=== PATIENT | female | born 1950 | race Caucasian/White ===

== ENCOUNTER 2017-09-14 10:51 | Outpatient (CLI) | payer MEDICARE ==
--- NOTE | 2017-09-14 13:02 | RAD ---
PA AND LATERAL VIEWS OF CHEST: Date: 09/14/17 HISTORY: Cough. FINDINGS: The heart size is normal. The aorta is tortuous. The lungs are well expanded without focal areas of c onsolidation, pneumothorax, or pleural effusions. 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 The re are degenerative changes in the spine. Scoliosis of the spine is also present. IMPRESSION: No radiographic evidence of acute cardiopulmonary process. POS: [facility]
== END 2017-09-14 10:52 | disposition home or self-care (01) ==
LOC: RAD-FRANK 10:51
PROVIDERS: ATTEND Nurse Practitioner Family
DX: R05 Cough (principal); J06.9 Acute upper respiratory infection, unspecified; J40 Bronchitis, not specified as acute or chronic; F17.210 Nicotine dependence, cigarettes, uncomplicated
CPT/HCPCS: 71046

== ENCOUNTER 2021-12-24 18:35 | Inpatient (IN) | payer MEDICARE ==
[2021-12-24 20:31] VITALS: BMI 30.6
[2021-12-24] MEDS ORDERED: Morphine 2 MG/ML VIAL SLOW IVP PRN (20:34)
[2021-12-24] MEDS: Morphine 4 MG/ML VIAL SLOW IVP PRN (20:54)
[2021-12-24] MEDS: Ondansetron PF 4 MG/2 ML Vial IVP PRN (20:58)
[2021-12-25] MEDS: Morphine 4 MG/ML VIAL SLOW IVP PRN ×2 (01:16→05:22)
[2021-12-25] MEDS ORDERED: Temazepam 15 MG CAP PO PRN (04:44)
[2021-12-25] MEDS ORDERED: Diazepam 2 MG TAB PO PRN (04:44)
[2021-12-25] MEDS: Levothyroxine Sodium 100 MCG TAB PO SCH (05:23)
[2021-12-25] MEDS: Ondansetron PF 4 MG/2 ML Vial IVP PRN (05:30)
[2021-12-25] MEDS: Carbidopa/Levodopa [Rytary Er] 48.75 MG/195 MG Capsule.Er PO SCH ×4 (05:34→20:46)
[2021-12-25 07:04] LABS: #Eosinphils 0.1 thou/uL (0.0-0.7); #Lymphocytes 1.2 thou/uL (1.20-3.40); #Monocytes 1.6 thou/uL (0.11-0.59); #Neutrophils 9.9 thou/uL (1.40-6.50); %Basophils 0.2 % (0.0-1.0); %Eosinophils 0.6 % (0.0-10.0); %Lymphocytes 9.4 % (21.0-51.0); %Monocytes 12.4 % (0.0-10.0); %Neutrophils 77.4 % (42.0-75.0); Mean Corpuscular HGB CONC 31.9 g/dL (32.0-36.0); Mean Corpuscular Hemoglobin 31.3 pg (27.0-31.0); Mean Corpuscular Volume 98.1 fL (78.0-98.0); Mean Platelet Volume 7.4 fL (7.4-10.4); Platelet Count 500 thou/uL (130-400); RBC Distribution Width 11.9 % (11.5-14.5); Red Blood Cell (RBC) Count 4.79 mill/uL (4.20-5.40); White Blood Cell (WBC) Count 12.8 thou/uL (4.8-10.8)
[2021-12-25 07:05] LABS: INR-International Normal Ratio 1.1; Prothrombin Time 14.7 sec (12.0-14.7)
[2021-12-25 07:06] LABS: PTT 38.9 sec (22.9-36.1)
[2021-12-25] MEDS: Enoxaparin Sodium 40 MG/0.4 ML SYRINGE SC SCH (07:57)
[2021-12-25] MEDS: PARoxetine 20 MG TAB PO SCH (07:58)
[2021-12-25] MEDS: Famotidine 20 MG TAB PO SCH ×2 (07:58→20:45)
[2021-12-25 08:03] LABS: ALT (SGPT) Less than 7 U/L (8-55); AST (SGOT) 8 U/L (5-34); Albumin 2.9 g/dL (3.4-4.8); Alkaline Phosphatase 63 U/L (40-110); Anion Gap 17 mmol/L (10-20); BUN (Urea Nitrogen) 38 mg/dL (9.8-20.1); Bilirubin, Total 0.5 mg/dL (0.2-1.2); Calc. Creatinine Clearance 63 mL/min (70-130); Calcium 8.8 mg/dL (7.8-10.44); Carbon Dioxide 25 mmol/L (23-31); Chloride 99 mmol/L (98-107); Globulin 3.2 g/dL (2.4-3.5); Glucose 127 mg/dL (80-115); Potassium 4.3 mmol/L (3.5-5.1); Protein, Total 6.1 g/dL (5.8-8.1); Sodium 137 mmol/L (136-145)
[2021-12-25] MEDS: HYDROcodone/Acetaminophen 5/325 mg Tablet PO PRN (09:22)
[2021-12-25] MEDS ORDERED: Lidocaine 1% PF 5 ML VIAL ONE (11:26)
[2021-12-25] MEDS ORDERED: Sodium Bicarbonate 2.5 MEQ/5 ML VIAL ONE (11:26)
[2021-12-25 13:19] LABS: RBC Count-Automated (BF) 44966 /cu.mm; WBC/Nucleated-Auto (BF) 683 /cu.mm
[2021-12-25 13:21] LABS: BF Color Red; Body Fluid Source Ascites Body Fluid; Clarity Cloudy/Turbid (Clear); Tube # EDTA
[2021-12-25] MEDS: cefTRIAXone\\ROCEPHIN 2 GM in Sodium Chloride 0.9% 100 ML IVPB SCH (13:46)
[2021-12-25 13:47] LABS: BF Segmented Neutrophils 12 %; Cell Count Non Hematic 53 %; Eosinophils 7 %; Lymphocytes 28 %
[2021-12-25] MEDS: Melatonin 3 MG TAB PO SCH ×2 (20:45→20:50)
[2021-12-26] MEDS: Levothyroxine Sodium 100 MCG TAB PO SCH (06:06)
[2021-12-26] MEDS: Carbidopa/Levodopa [Rytary Er] 48.75 MG/195 MG Capsule.Er PO SCH ×5 (06:06→20:34)
[2021-12-26 06:34] LABS: Anion Gap 16 mmol/L (10-20); BUN (Urea Nitrogen) 40 mg/dL (9.8-20.1); Calc. Creatinine Clearance 68 mL/min (70-130); Calcium 8.2 mg/dL (7.8-10.44); Carbon Dioxide 25 mmol/L (23-31); Chloride 101 mmol/L (98-107); Glucose 114 mg/dL (80-115); Potassium 4.5 mmol/L (3.5-5.1); Sodium 137 mmol/L (136-145)
[2021-12-26] MEDS: PARoxetine 20 MG TAB PO SCH (07:48)
[2021-12-26] MEDS: Senokot S 8.6-50 MG TAB PO PRN ×2 (07:48→20:33)
[2021-12-26] MEDS: Enoxaparin Sodium 40 MG/0.4 ML SYRINGE SC SCH (07:49)
[2021-12-26] MEDS: Famotidine 20 MG TAB PO SCH ×2 (07:49→20:33)
[2021-12-26] MEDS: Polyethylene Glycol 3350 17 GM Packet PO SCH (09:11)
[2021-12-26] MEDS: Acetaminophen 325 MG TAB PO PRN ×3 (09:23→20:50)
[2021-12-26] MEDS: cefTRIAXone\\ROCEPHIN 2 GM in Sodium Chloride 0.9% 100 ML IVPB SCH (12:07)
[2021-12-26 13:13] LABS: Albumin, Fluid 2.4 g/dL (Not Estab.)
[2021-12-26] MEDS: Melatonin 3 MG TAB PO SCH (20:33)
[2021-12-27] MEDS: Acetaminophen 325 MG TAB PO PRN ×3 (02:07→14:02)
[2021-12-27 06:02] LABS: #Basophils 0.1 thou/uL (0.0-0.2); #Eosinphils 0.1 thou/uL (0.0-0.7); #Lymphocytes 1.2 thou/uL (1.20-3.40); #Monocytes 1.5 thou/uL (0.11-0.59); #Neutrophils 9.7 thou/uL (1.40-6.50); %Basophils 0.6 % (0.0-1.0); %Lymphocytes 9.4 % (21.0-51.0); %Monocytes 11.5 % (0.0-10.0); %Neutrophils 77.4 % (42.0-75.0); Hemoglobin 14.7 g/dL (12.0-16.0); Mean Corpuscular HGB CONC 32.9 g/dL (32.0-36.0); Mean Corpuscular Hemoglobin 31.9 pg (27.0-31.0); Mean Corpuscular Volume 96.9 fL (78.0-98.0); Mean Platelet Volume 7.2 fL (7.4-10.4); Platelet Count 555 thou/uL (130-400); RBC Distribution Width 12.2 % (11.5-14.5); Red Blood Cell (RBC) Count 4.63 mill/uL (4.20-5.40); White Blood Cell (WBC) Count 12.6 thou/uL (4.8-10.8)
[2021-12-27] MEDS: Levothyroxine Sodium 100 MCG TAB PO SCH (06:12)
[2021-12-27] MEDS: Carbidopa/Levodopa [Rytary Er] 48.75 MG/195 MG Capsule.Er PO SCH ×4 (06:12→21:15)
[2021-12-27 06:23] LABS: ALT (SGPT) Less than 7 U/L (8-55); AST (SGOT) 10 U/L (5-34); Albumin 2.7 g/dL (3.4-4.8); Alkaline Phosphatase 61 U/L (40-110); Anion Gap 13 mmol/L (10-20); BUN (Urea Nitrogen) 35 mg/dL (9.8-20.1); Bilirubin, Total 0.4 mg/dL (0.2-1.2); Calc. Creatinine Clearance 77 mL/min (70-130); Calcium 8.1 mg/dL (7.8-10.44); Carbon Dioxide 26 mmol/L (23-31); Chloride 101 mmol/L (98-107); Globulin 2.9 g/dL (2.4-3.5); Glucose 125 mg/dL (80-115); Potassium 3.9 mmol/L (3.5-5.1); Protein, Total 5.6 g/dL (5.8-8.1); Sodium 136 mmol/L (136-145)
[2021-12-27] MEDS: Polyethylene Glycol 3350 17 GM Packet PO SCH (08:53)
[2021-12-27] MEDS: Famotidine 20 MG TAB PO SCH ×2 (08:53→21:06)
[2021-12-27] MEDS: Magnesium Oxide 400 MG TAB PO SCH (08:53)
[2021-12-27] MEDS: PARoxetine 20 MG TAB PO SCH (08:53)
[2021-12-27] MEDS: Enoxaparin Sodium 40 MG/0.4 ML SYRINGE SC SCH (08:53)
[2021-12-27] MEDS ORDERED: Iopamidol-370 76% 500 ML 1 ML ONE (10:00)
[2021-12-27] MEDS: cefTRIAXone\\ROCEPHIN 2 GM in Sodium Chloride 0.9% 100 ML IVPB SCH (12:02)
[2021-12-27] MEDS: Ondansetron PF 4 MG/2 ML Vial IVP PRN (14:02)
[2021-12-27] MEDS: HYDROcodone/Acetaminophen 5/325 mg Tablet PO PRN ×2 (17:13→21:14)
[2021-12-27] MEDS: Melatonin 3 MG TAB PO SCH (21:06)
[2021-12-27] MEDS: Senokot S 8.6-50 MG TAB PO PRN (21:13)
[2021-12-28] MEDS: HYDROcodone/Acetaminophen 5/325 mg Tablet PO PRN (00:45)
[2021-12-28] MEDS: Levothyroxine Sodium 100 MCG TAB PO SCH (05:37)
[2021-12-28] MEDS: Carbidopa/Levodopa [Rytary Er] 48.75 MG/195 MG Capsule.Er PO SCH ×4 (05:39→20:55)
[2021-12-28 06:17] LABS: #Eosinphils 0.1 thou/uL (0.0-0.7); #Lymphocytes 1.3 thou/uL (1.20-3.40); #Monocytes 1.6 thou/uL (0.11-0.59); #Neutrophils 11.1 thou/uL (1.40-6.50); %Basophils 0.3 % (0.0-1.0); %Lymphocytes 9.5 % (21.0-51.0); %Neutrophils 78.2 % (42.0-75.0); Mean Corpuscular HGB CONC 31.9 g/dL (32.0-36.0); Mean Corpuscular Hemoglobin 29.4 pg (27.0-31.0); Mean Corpuscular Volume 92.1 fL (78.0-98.0); Mean Platelet Volume 7.4 fL (7.4-10.4); Platelet Count 583 thou/uL (130-400); Red Blood Cell (RBC) Count 5.44 mill/uL (4.20-5.40); White Blood Cell (WBC) Count 14.2 thou/uL (4.8-10.8)
[2021-12-28 06:34] LABS: ALT (SGPT) Less than 7 U/L (8-55); AST (SGOT) 8 U/L (5-34); Albumin 2.7 g/dL (3.4-4.8); Alkaline Phosphatase 63 U/L (40-110); Anion Gap 12 mmol/L (10-20); BUN (Urea Nitrogen) 33 mg/dL (9.8-20.1); Bilirubin, Total 0.4 mg/dL (0.2-1.2); Calc. Creatinine Clearance 96 mL/min (70-130); Calcium 8.3 mg/dL (7.8-10.44); Carbon Dioxide 27 mmol/L (23-31); Chloride 100 mmol/L (98-107); Globulin 3.1 g/dL (2.4-3.5); Glucose 103 mg/dL (80-115); Lipase 11 U/L (8-78); Potassium 4.1 mmol/L (3.5-5.1); Protein, Total 5.8 g/dL (5.8-8.1); Sodium 135 mmol/L (136-145)
[2021-12-28] MEDS: Magnesium Oxide 400 MG TAB PO SCH (08:32)
[2021-12-28] MEDS: PARoxetine 20 MG TAB PO SCH (08:32)
[2021-12-28] MEDS: Polyethylene Glycol 3350 17 GM Packet PO SCH (08:32)
[2021-12-28] MEDS: Famotidine 20 MG TAB PO SCH ×2 (08:33→20:54)
[2021-12-28] MEDS: Enoxaparin Sodium 40 MG/0.4 ML SYRINGE SC SCH (08:33)
[2021-12-28] MEDS: cefTRIAXone\\ROCEPHIN 2 GM in Sodium Chloride 0.9% 100 ML IVPB SCH (12:49)
[2021-12-28] MEDS: traMADol HCl 50 MG TAB PO PRN ×2 (12:51→18:56)
[2021-12-28] MEDS: Melatonin 3 MG TAB PO SCH (20:55)
[2021-12-28] MEDS: Senokot S 8.6-50 MG TAB PO PRN (20:57)
[2021-12-29] MEDS: traMADol HCl 50 MG TAB PO PRN ×4 (00:10→23:33)
[2021-12-29] MEDS: Carbidopa/Levodopa [Rytary Er] 48.75 MG/195 MG Capsule.Er PO SCH ×4 (05:39→19:49)
[2021-12-29] MEDS: Levothyroxine Sodium 100 MCG TAB PO SCH (05:39)
[2021-12-29] MEDS: Acetaminophen 325 MG TAB PO PRN (05:45)
[2021-12-29] MEDS: PARoxetine 20 MG TAB PO SCH (08:37)
[2021-12-29] MEDS: Enoxaparin Sodium 40 MG/0.4 ML SYRINGE SC SCH (08:38)
[2021-12-29] MEDS: Magnesium Oxide 400 MG TAB PO SCH (08:38)
[2021-12-29] MEDS: Polyethylene Glycol 3350 17 GM Packet PO SCH (08:38)
[2021-12-29] MEDS: Famotidine 20 MG TAB PO SCH ×2 (08:38→19:48)
[2021-12-29] MEDS ORDERED: Calcium Carbonate 500 MG ChewTAB PO PRN (12:24)
[2021-12-29] MEDS ORDERED: Calcium Carbonate 500 MG ChewTAB PO SCH (12:30)
[2021-12-29] MEDS: cefTRIAXone\\ROCEPHIN 2 GM in Sodium Chloride 0.9% 100 ML IVPB SCH (12:32)
[2021-12-29] MEDS: Ondansetron PF 4 MG/2 ML Vial IVP PRN ×2 (18:16→23:33)
[2021-12-29] MEDS: Melatonin 3 MG TAB PO SCH (19:49)
[2021-12-30] MEDS: Carbidopa/Levodopa [Rytary Er] 48.75 MG/195 MG Capsule.Er PO SCH ×2 (06:23→09:39)
[2021-12-30] MEDS: Levothyroxine Sodium 100 MCG TAB PO SCH (06:23)
[2021-12-30 08:12] VITALS: TEMP 97.6
[2021-12-30] MEDS ORDERED: Lidocaine 1% PF 5 ML VIAL ONE (08:17)
[2021-12-30] MEDS ORDERED: Sodium Bicarbonate 2.5 MEQ/5 ML VIAL ONE (08:17)
[2021-12-30 09:24] VITALS: BP 136/67
[2021-12-30] MEDS: PARoxetine 20 MG TAB PO SCH (09:37)
[2021-12-30] MEDS: Enoxaparin Sodium 40 MG/0.4 ML SYRINGE SC SCH (09:37)
[2021-12-30] MEDS: Polyethylene Glycol 3350 17 GM Packet PO SCH (09:38)
[2021-12-30] MEDS: Magnesium Oxide 400 MG TAB PO SCH (09:38)
[2021-12-30] MEDS: Famotidine 20 MG TAB PO SCH (09:38)
[2021-12-30] MEDS: cefTRIAXone\\ROCEPHIN 2 GM in Sodium Chloride 0.9% 100 ML IVPB SCH (13:35)
== END 2021-12-30 13:50 | disposition home or self-care (01) | DRG 375 ==
LOC: T4-A 20:11
PROVIDERS: ADMIT Family Medicine; ATTEND Family Medicine
PROC: 0W9G3ZX Drainage of Peritoneal Cavity, Percutaneous Approach, Diagnostic (ICD-10-PCS; principal; 2021-12-25)
PROC: 0W9G3ZZ Drainage of Peritoneal Cavity, Percutaneous Approach (ICD-10-PCS; 2021-12-30)
DX: C78.6 Secondary malignant neoplasm of retroperitoneum and peritoneum (principal); R18.0 Malignant ascites; E03.9 Hypothyroidism, unspecified; G20 Parkinson's disease; F02.80 Dementia in other diseases classified elsewhere, unspecified severity, without behavioral disturbance, psychotic disturbance, mood disturbance, and anxiety; F17.210 Nicotine dependence, cigarettes, uncomplicated; K58.9 Irritable bowel syndrome, unspecified; C80.1 Malignant (primary) neoplasm, unspecified; Z88.2 Allergy status to sulfonamides; Z90.89 Acquired absence of other organs; Z90.49 Acquired absence of other specified parts of digestive tract; Z98.84 Bariatric surgery status; Z90.710 Acquired absence of both cervix and uterus; Z71.6 Tobacco abuse counseling; Z80.0 Family history of malignant neoplasm of digestive organs
CPT/HCPCS: 36415; 49083; 71260; 74177; 80048; 80053; 82042; 82378; 83690; 83986; 84157; 84439; 84443; 85025; 85060; 85610; 85730; 86301; 86304; 87070; 87205; 88112; 88305; 88341; 88342; 89051; J0696; J1650; J2270; J2405; J3490; Q9967

== ENCOUNTER 2022-01-03 15:25 | Inpatient (IN) | payer MEDICARE ==
[2022-01-03] MEDS ORDERED: Ondansetron PF 4 MG/2 ML Vial ONE (15:56)
[2022-01-03] MEDS ORDERED: Morphine 4 MG/ML VIAL ONE (16:42)
[2022-01-03] MEDS ORDERED: Lidocaine 1% PF 5 ML VIAL ONE (16:44)
[2022-01-03 16:45] LABS: Hemoglobin 16.2 g/dL (12.0-16.0); Mean Corpuscular HGB CONC 33.2 g/dL (32.0-36.0); Mean Corpuscular Hemoglobin 31.6 pg (27.0-31.0); Mean Corpuscular Volume 95.2 fL (78.0-98.0); Mean Platelet Volume 7.3 fL (7.4-10.4); Platelet Count 533 thou/uL (130-400); RBC Distribution Width 12.2 % (11.5-14.5); Red Blood Cell (RBC) Count 5.12 mill/uL (4.20-5.40); White Blood Cell (WBC) Count 18.6 thou/uL (4.8-10.8)
[2022-01-03 16:58] LABS: ALT (SGPT) Less than 7 U/L (8-55); AST (SGOT) 11 U/L (5-34); Albumin 2.7 g/dL (3.4-4.8); Alkaline Phosphatase 80 U/L (40-110); Anion Gap 22 mmol/L (10-20); BUN (Urea Nitrogen) 49 mg/dL (9.8-20.1); Bilirubin, Total 0.6 mg/dL (0.2-1.2); Calc. Creatinine Clearance 0 mL/min (70-130); Calcium 8.4 mg/dL (7.8-10.44); Carbon Dioxide 24 mmol/L (23-31); Chloride 91 mmol/L (98-107); Globulin 3.5 g/dL (2.4-3.5); Glucose 95 mg/dL (80-115); Potassium 6.1 mmol/L (3.5-5.1); Protein, Total 6.2 g/dL (5.8-8.1); Sodium 131 mmol/L (136-145)
[2022-01-03 17:02] LABS: Band 3 % (5-11); Lymphocytes 1 % (21-51); MDiff Complete? YES; Monocytes 13 % (0-10); Neutrophil 80 % (42-75); Platelet Morphology Comment Appears Adequate; Polychromasia SLIGHT = 2-3 cells (100X) (0-2/hpf); Reactive Lymphocytes 3 % (0-10)
[2022-01-03] MEDS ORDERED: Vancomycin 1 GM/200 ML BAG ONE (17:21)
[2022-01-03] MEDS ORDERED: Piperacillin/Tazobactam 3.375 GM VIAL ONE (17:21)
[2022-01-03] MEDS ORDERED: Acetaminophen 650 MG Suppository PR PRN (18:11)
[2022-01-03] MEDS ORDERED: Calcium Carbonate 500 MG ChewTAB PO PRN (18:11)
[2022-01-03] MEDS ORDERED: Moisturizing Cream (Eucerin) 113 GM JAR TOP PRN (18:11)
[2022-01-03] MEDS ORDERED: Acetaminophen 325 MG TAB PO PRN (18:11)
[2022-01-03] MEDS ORDERED: Senokot S 8.6-50 MG TAB PO PRN (18:11)
[2022-01-03] MEDS ORDERED: Bisacodyl 5 MG TAB PO PRN (18:11)
[2022-01-03] MEDS ORDERED: Artificial Tear Sol 15 ML BOT EA EYE PRN (18:11)
[2022-01-03] MEDS ORDERED: Communication Order-Pharmacy FS ONE (18:11)
[2022-01-03] MEDS ORDERED: Dextrose 50% Abboject 50 ML SYRINGE SLOW IVP PRN (18:36)
[2022-01-03] MEDS ORDERED: Calcium Gluconate 4.6 MEQ in Sodium Chloride 0.9% 100 ML IVPB SCH (18:36)
[2022-01-03] MEDS ORDERED: Insulin Regular 300 UNITS/3 ML VIAL IVP SCH (18:45)
[2022-01-03] MEDS ORDERED: Albumin 25% 25 GM/100 ML BOT IVPB SCH (18:45)
[2022-01-03] MEDS ORDERED: Temazepam 15 MG CAP PO PRN (18:49)
[2022-01-03 18:52] LABS: Phosphorus 4.9 mg/dL (2.3-4.7)
[2022-01-03 18:55] LABS: ALT (SGPT) Less than 7 U/L (8-55); AST (SGOT) 8 U/L (5-34); Albumin 2.3 g/dL (3.4-4.8); Alkaline Phosphatase 72 U/L (40-110); Anion Gap 17 mmol/L (10-20); BUN (Urea Nitrogen) 48 mg/dL (9.8-20.1); Bilirubin, Total 0.6 mg/dL (0.2-1.2); Calc. Creatinine Clearance 0 mL/min (70-130); Calcium 7.9 mg/dL (7.8-10.44); Carbon Dioxide 23 mmol/L (23-31); Chloride 95 mmol/L (98-107); Globulin 3.1 g/dL (2.4-3.5); Glucose 102 mg/dL (80-115); Magnesium 2.8 mg/dL (1.6-2.6); Potassium 5.8 mmol/L (3.5-5.1); Protein, Total 5.4 g/dL (5.8-8.1); Sodium 129 mmol/L (136-145)
[2022-01-03] MEDS ORDERED: Dextrose 5% in Water 1,000 ML IV PRN (19:00)
[2022-01-03] MEDS ORDERED: Dextrose 50% Abboject 50 ML SYRINGE IVP PRN (19:00)
[2022-01-03 19:47] LABS: RBC Count-Automated (BF) 4654 /cu.mm; WBC/Nucleated-Auto (BF) 135 /cu.mm
[2022-01-03 20:03] LABS: BF Color Red; Body Fluid Source Ascites Body Fluid; Clarity Hazy (Clear); Tube # EDTA
[2022-01-03 20:04] LABS: BF Segmented Neutrophils 5 %; Cell Count Non Hematic 22 %; Lymphocytes 73 %
[2022-01-03] MEDS: Nicotine 14 MG PATCH TD SCH (21:58)
[2022-01-03] MEDS: Famotidine/PF 20 mg/2ml Vial SLOW IVP SCH (21:58)
[2022-01-03] MEDS: Heparin 5,000 UNITS/ML VIAL SC SCH (21:58)
[2022-01-03] MEDS: Piperacillin/Tazobactam 3.375 GM in Sodium Chloride 0.9% 100 ML IVPB SCH (22:38)
[2022-01-03] MEDS: Nystatin 100,000 Units/mL UDCUP SSW SCH (23:43)
[2022-01-03 23:57] LABS: Anion Gap 17 mmol/L (10-20); BUN (Urea Nitrogen) 47 mg/dL (9.8-20.1); Calc. Creatinine Clearance 58 mL/min (70-130); Calcium 7.8 mg/dL (7.8-10.44); Carbon Dioxide 21 mmol/L (23-31); Chloride 96 mmol/L (98-107); Glucose 152 mg/dL (80-115); Potassium 5.5 mmol/L (3.5-5.1); Sodium 128 mmol/L (136-145)
[2022-01-04] MEDS ORDERED: Vancomycin HCl 750 MG in Sodium Chloride 0.9% 250 ML 250 ML IVPB SCH (02:00)
[2022-01-04 03:59] LABS: #Eosinphils 0.2 thou/uL (0.0-0.7); #Lymphocytes 0.9 thou/uL (1.20-3.40); #Neutrophils 13.9 thou/uL (1.40-6.50); %Basophils 0.2 % (0.0-1.0); %Lymphocytes 5.4 % (21.0-51.0); %Monocytes 11.8 % (0.0-10.0); %Neutrophils 81.7 % (42.0-75.0); Hemoglobin 14.5 g/dL (12.0-16.0); Mean Corpuscular HGB CONC 33.2 g/dL (32.0-36.0); Mean Corpuscular Hemoglobin 31.6 pg (27.0-31.0); Mean Corpuscular Volume 95.2 fL (78.0-98.0); Mean Platelet Volume 6.8 fL (7.4-10.4); Platelet Count 543 thou/uL (130-400); RBC Distribution Width 12.2 % (11.5-14.5); Red Blood Cell (RBC) Count 4.59 mill/uL (4.20-5.40)
[2022-01-04 04:24] LABS: ALT (SGPT) Less than 7 U/L (8-55); AST (SGOT) 10 U/L (5-34); Albumin 2.4 g/dL (3.4-4.8); Alkaline Phosphatase 76 U/L (40-110); Anion Gap 17 mmol/L (10-20); BUN (Urea Nitrogen) 51 mg/dL (9.8-20.1); Bilirubin, Total 0.5 mg/dL (0.2-1.2); Calc. Creatinine Clearance 56 mL/min (70-130); Carbon Dioxide 22 mmol/L (23-31); Chloride 96 mmol/L (98-107); Globulin 3.1 g/dL (2.4-3.5); Glucose 132 mg/dL (80-115); Potassium 5.4 mmol/L (3.5-5.1); Protein, Total 5.5 g/dL (5.8-8.1); Sodium 130 mmol/L (136-145)
[2022-01-04] MEDS: Levothyroxine Sodium 100 MCG TAB PO SCH (05:32)
[2022-01-04] MEDS: Piperacillin/Tazobactam 3.375 GM in Sodium Chloride 0.9% 100 ML IVPB SCH ×3 (05:32→22:15)
[2022-01-04] MEDS ORDERED: Cosyntropin 250 MCG VIAL SLOW IVP SCH (08:00)
[2022-01-04 09:00] LABS: Bilirubin Small (Negative); Blood, Urine Negative (Negative); Glucose, Urine (Dipstick) Negative (Negative); Ketone, Urine Trace mg/dL (Negative); Leukocyte Negative (Negative); Nitrite Negative (Negative); Protein, Urine (Dipstick) Trace mg/dL (Neg-Trace); Specific Gravity, Urine 1.025 (1.005-1.030); pH, Urine 5.5 (5.0-9.0)
[2022-01-04 09:01] LABS: Clarity Hazy (Clear)
[2022-01-04 09:25] LABS: RBC/HPF None Seen HPF (0-3); Squamous Epithelial 0-3 HPF (0-3); Transitional Epithelial 0-3 HPF (None Seen); WBC/HPF 0-3 HPF (0-3)
[2022-01-04 09:26] LABS: Bacteria/HPF 4+ HPF (None Seen)
[2022-01-04] MEDS: Famotidine/PF 20 mg/2ml Vial SLOW IVP SCH ×2 (09:47→23:16)
[2022-01-04] MEDS: Heparin 5,000 UNITS/ML VIAL SC SCH ×3 (09:47→20:11)
[2022-01-04] MEDS: Nystatin 500,000 UNITS/5 ML UDCUP SSW SCH ×4 (09:48→21:41)
[2022-01-04] MEDS: PARoxetine 20 MG TAB PO SCH (09:48)
[2022-01-04] MEDS: Albumin 25% 25 GM/100 ML BOT IVPB SCH ×3 (09:49→21:41)
[2022-01-04] MEDS: Nystatin 100,000 Units/mL UDCUP SSW SCH (10:46)
[2022-01-04] MEDS ORDERED: Vancomycin 1.5 GRAM/300 ML BAG 1.5 GM in Premix Bag 1 BAG IVPB SCH (18:00)
[2022-01-04] MEDS: Carbidopa/Levodopa [Rytary Er] 48.75 MG/195 MG Capsule.Er PO SCH ×2 (18:19→21:41)
[2022-01-04] MEDS: Nicotine 14 MG PATCH TD SCH (18:20)
[2022-01-04] MEDS: traMADol HCl 50 MG TAB PO PRN (20:10)
[2022-01-04] MEDS: Famotidine 40 MG/4 ML VIAL SLOW IVP SCH (21:41)
[2022-01-05] MEDS: Albumin 25% 25 GM/100 ML BOT IVPB SCH (01:14)
[2022-01-05 04:49] LABS: #Eosinphils 0.2 thou/uL (0.0-0.7); #Lymphocytes 0.9 thou/uL (1.20-3.40); #Monocytes 1.9 thou/uL (0.11-0.59); #Neutrophils 12.8 thou/uL (1.40-6.50); %Eosinophils 1.1 % (0.0-10.0); %Lymphocytes 5.9 % (21.0-51.0); %Monocytes 12.2 % (0.0-10.0); %Neutrophils 80.8 % (42.0-75.0); Hemoglobin 12.4 g/dL (12.0-16.0); Mean Corpuscular HGB CONC 33.5 g/dL (32.0-36.0); Mean Corpuscular Hemoglobin 31.7 pg (27.0-31.0); Mean Corpuscular Volume 94.8 fL (78.0-98.0); Mean Platelet Volume 6.7 fL (7.4-10.4); Platelet Count 490 thou/uL (130-400); RBC Distribution Width 12.1 % (11.5-14.5); Red Blood Cell (RBC) Count 3.92 mill/uL (4.20-5.40); White Blood Cell (WBC) Count 15.8 thou/uL (4.8-10.8)
[2022-01-05 05:09] LABS: ALT (SGPT) Less than 7 U/L (8-55); AST (SGOT) 6 U/L (5-34); Albumin 3.6 g/dL (3.4-4.8); Alkaline Phosphatase 58 U/L (40-110); Anion Gap 16 mmol/L (10-20); BUN (Urea Nitrogen) 43 mg/dL (9.8-20.1); Bilirubin, Total 0.6 mg/dL (0.2-1.2); Calc. Creatinine Clearance 53 mL/min (70-130); Calcium 8.4 mg/dL (7.8-10.44); Carbon Dioxide 25 mmol/L (23-31); Chloride 96 mmol/L (98-107); Globulin 2.5 g/dL (2.4-3.5); Glucose 107 mg/dL (80-115); Potassium 5.4 mmol/L (3.5-5.1); Protein, Total 6.1 g/dL (5.8-8.1); Sodium 132 mmol/L (136-145)
[2022-01-05] MEDS: Levothyroxine Sodium 100 MCG TAB PO SCH (05:50)
[2022-01-05] MEDS: Carbidopa/Levodopa [Rytary Er] 48.75 MG/195 MG Capsule.Er PO SCH ×4 (05:50→22:56)
[2022-01-05] MEDS: Piperacillin/Tazobactam 3.375 GM in Sodium Chloride 0.9% 100 ML IVPB SCH ×3 (05:53→22:52)
[2022-01-05] MEDS ORDERED: Albumin 25% 25 GM/100 ML BOT IVPB SCH (08:30)
[2022-01-05] MEDS: Heparin 5,000 UNITS/ML VIAL SC SCH ×3 (08:47→23:02)
[2022-01-05] MEDS: PARoxetine 20 MG TAB PO SCH (08:47)
[2022-01-05] MEDS: Nystatin 500,000 UNITS/5 ML UDCUP SSW SCH ×4 (08:47→22:53)
[2022-01-05] MEDS: Famotidine 40 MG/4 ML VIAL SLOW IVP SCH (08:48)
[2022-01-05] MEDS ORDERED: Aluminum & Magnesium Hydroxide 60 ML, Lidocaine 2% Viscous Solution 30 ML, diphenhydrAM... SSW PRN (09:27)
[2022-01-05] MEDS: traMADol HCl 50 MG TAB PO PRN (11:36)
[2022-01-05] MEDS ORDERED: Aluminum & Magnesium Hydroxide 60 ML, Lidocaine 2% Viscous Solution 30 ML, diphenhydrAM... SSP SCH (13:30)
[2022-01-05] MEDS: Nicotine 14 MG PATCH TD SCH (17:05)
[2022-01-05] MEDS: Acyclovir 400 mg Tablet PO SCH (22:54)
[2022-01-06 04:53] LABS: #Eosinphils 0.1 thou/uL (0.0-0.7); #Lymphocytes 0.8 thou/uL (1.20-3.40); #Monocytes 1.6 thou/uL (0.11-0.59); #Neutrophils 13.2 thou/uL (1.40-6.50); %Basophils 0.1 % (0.0-1.0); %Eosinophils 0.6 % (0.0-10.0); %Monocytes 10.5 % (0.0-10.0); %Neutrophils 83.9 % (42.0-75.0); Hemoglobin 13.4 g/dL (12.0-16.0); Mean Corpuscular HGB CONC 32.6 g/dL (32.0-36.0); Mean Corpuscular Hemoglobin 31.3 pg (27.0-31.0); Mean Platelet Volume 6.6 fL (7.4-10.4); Platelet Count 508 thou/uL (130-400); RBC Distribution Width 12.1 % (11.5-14.5); Red Blood Cell (RBC) Count 4.28 mill/uL (4.20-5.40); White Blood Cell (WBC) Count 15.7 thou/uL (4.8-10.8)
[2022-01-06 05:26] LABS: ALT (SGPT) Less than 7 U/L (8-55); AST (SGOT) 8 U/L (5-34); Albumin 3.1 g/dL (3.4-4.8); Alkaline Phosphatase 64 U/L (40-110); Anion Gap 16 mmol/L (10-20); BUN (Urea Nitrogen) 27 mg/dL (9.8-20.1); Bilirubin, Total 0.6 mg/dL (0.2-1.2); Calc. Creatinine Clearance 82 mL/min (70-130); Calcium 8.3 mg/dL (7.8-10.44); Carbon Dioxide 23 mmol/L (23-31); Chloride 97 mmol/L (98-107); Globulin 2.6 g/dL (2.4-3.5); Glucose 87 mg/dL (80-115); Magnesium 2.7 mg/dL (1.6-2.6); Phosphorus 3.1 mg/dL (2.3-4.7); Potassium 3.8 mmol/L (3.5-5.1); Protein, Total 5.7 g/dL (5.8-8.1); Sodium 132 mmol/L (136-145)
[2022-01-06] MEDS: Levothyroxine Sodium 100 MCG TAB PO SCH (05:45)
[2022-01-06] MEDS: Piperacillin/Tazobactam 3.375 GM in Sodium Chloride 0.9% 100 ML IVPB SCH ×3 (05:45→22:30)
[2022-01-06] MEDS: Carbidopa/Levodopa [Rytary Er] 48.75 MG/195 MG Capsule.Er PO SCH ×4 (05:46→21:21)
[2022-01-06] MEDS: PARoxetine 20 MG TAB PO SCH (08:46)
[2022-01-06] MEDS: Nystatin 500,000 UNITS/5 ML UDCUP SSW SCH ×4 (08:46→21:20)
[2022-01-06] MEDS: Heparin 5,000 UNITS/ML VIAL SC SCH ×3 (08:51→21:19)
[2022-01-06] MEDS ORDERED: Ondansetron PF 4 MG/2 ML Vial IVP PRN (12:27)
[2022-01-06] MEDS ORDERED: Ondansetron ODT 4 MG TAB PO PRN (12:27)
[2022-01-06] MEDS ORDERED: BIOTENE MOUTH SPRAY 44.3 ML MM PRN (12:47)
[2022-01-06] MEDS: Acyclovir 400 mg Tablet PO SCH ×3 (12:59→21:19)
[2022-01-06] MEDS: traMADol HCl 50 MG TAB PO PRN ×2 (13:52→21:30)
[2022-01-06 14:00] VITALS: BMI 28.3
[2022-01-06] MEDS ORDERED: Spironolactone 100 MG TAB PO SCH (15:45)
[2022-01-06] MEDS: Nicotine 14 MG PATCH TD SCH (17:19)
[2022-01-07 04:53] LABS: #Eosinphils 0.2 thou/uL (0.0-0.7); #Lymphocytes 0.9 thou/uL (1.20-3.40); #Monocytes 2.1 thou/uL (0.11-0.59); #Neutrophils 14.9 thou/uL (1.40-6.50); %Eosinophils 1.1 % (0.0-10.0); %Monocytes 11.6 % (0.0-10.0); %Neutrophils 82.3 % (42.0-75.0); Hemoglobin 14.3 g/dL (12.0-16.0); Mean Corpuscular HGB CONC 32.6 g/dL (32.0-36.0); Mean Corpuscular Hemoglobin 31.5 pg (27.0-31.0); Mean Corpuscular Volume 96.6 fL (78.0-98.0); Mean Platelet Volume 6.6 fL (7.4-10.4); Platelet Count 539 thou/uL (130-400); RBC Distribution Width 12.2 % (11.5-14.5); Red Blood Cell (RBC) Count 4.54 mill/uL (4.20-5.40); White Blood Cell (WBC) Count 18.1 thou/uL (4.8-10.8)
[2022-01-07 05:14] LABS: Anion Gap 17 mmol/L (10-20); BUN (Urea Nitrogen) 26 mg/dL (9.8-20.1); Calc. Creatinine Clearance 66 mL/min (70-130); Calcium 9.1 mg/dL (7.8-10.44); Carbon Dioxide 26 mmol/L (23-31); Chloride 97 mmol/L (98-107); Glucose 82 mg/dL (80-115); Sodium 135 mmol/L (136-145)
[2022-01-07] MEDS: Piperacillin/Tazobactam 3.375 GM in Sodium Chloride 0.9% 100 ML IVPB SCH (06:37)
[2022-01-07] MEDS: Levothyroxine Sodium 100 MCG TAB PO SCH (06:38)
[2022-01-07] MEDS: Carbidopa/Levodopa [Rytary Er] 48.75 MG/195 MG Capsule.Er PO SCH ×2 (06:38→12:43)
[2022-01-07] MEDS ORDERED: Spironolactone 100 MG TAB PO SCH (08:00)
[2022-01-07] MEDS: PARoxetine 20 MG TAB PO SCH (08:57)
[2022-01-07] MEDS: Heparin 5,000 UNITS/ML VIAL SC SCH (08:57)
[2022-01-07] MEDS: Acyclovir 400 mg Tablet PO SCH (08:57)
[2022-01-07] MEDS: Nystatin 500,000 UNITS/5 ML UDCUP SSW SCH (08:57)
[2022-01-07 10:53] VITALS: BP 127/58; TEMP 97.9
== END 2022-01-07 12:41 | disposition home or self-care (01) | DRG 374 ==
LOC: ERS 15:25 → MSONC 17:51 → CCU 20:39 → 2NO 01-04 20:43
PROVIDERS: ADMIT Family Medicine; ATTEND Internal Medicine
PROC: 0W9G3ZZ Drainage of Peritoneal Cavity, Percutaneous Approach (ICD-10-PCS; principal; 2022-01-03)
DX: C48.2 Malignant neoplasm of peritoneum, unspecified (principal); E43 Unspecified severe protein-calorie malnutrition; R18.8 Other ascites; N17.9 Acute kidney failure, unspecified; E87.1 Hypo-osmolality and hyponatremia; R18.0 Malignant ascites; B37.0 Candidal stomatitis; B00.2 Herpesviral gingivostomatitis and pharyngotonsillitis; J90 Pleural effusion, not elsewhere classified; J98.11 Atelectasis; G20 Parkinson's disease; F02.80 Dementia in other diseases classified elsewhere, unspecified severity, without behavioral disturbance, psychotic disturbance, mood disturbance, and anxiety; E89.0 Postprocedural hypothyroidism; E87.5 Hyperkalemia; N18.9 Chronic kidney disease, unspecified; F41.9 Anxiety disorder, unspecified; F17.210 Nicotine dependence, cigarettes, uncomplicated; Z20.822 Contact with and (suspected) exposure to COVID-19; E86.0 Dehydration; R53.81 Other malaise; D72.829 Elevated white blood cell count, unspecified; Z88.2 Allergy status to sulfonamides; Z90.49 Acquired absence of other specified parts of digestive tract; Z90.710 Acquired absence of both cervix and uterus; Z79.899 Other long term (current) drug therapy; Z68.27 Body mass index [BMI] 27.0-27.9, adult
CPT/HCPCS: 36415; 36416; 71045; 71046; 76770; 80048; 80053; 80400; 81001; 83605; 83735; 83880; 84100; 84145; 84443; 84484; 85025; 85060; 87040; 87070; 87205; 89051; 93005; 94760; 96365; 96367; 96375; J0610; J0834; J1644; J1815; J2270; J2405; J2543; J3370; J3490; J7050; J7999; P9045; P9047; Q0163; S0028; U0003; U0005

== ENCOUNTER 2022-01-10 11:25 | Inpatient (IN) | payer MEDICARE ==
[2022-01-10 12:10] LABS: Mean Corpuscular HGB CONC 32.7 g/dL (32.0-36.0); Mean Corpuscular Hemoglobin 31.1 pg (27.0-31.0); Mean Corpuscular Volume 95.1 fL (78.0-98.0); Mean Platelet Volume 6.7 fL (7.4-10.4); Platelet Count 568 thou/uL (130-400); RBC Distribution Width 12.4 % (11.5-14.5); Red Blood Cell (RBC) Count 4.51 mill/uL (4.20-5.40); White Blood Cell (WBC) Count 22.7 thou/uL (4.8-10.8)
[2022-01-10 12:27] LABS: ALT (SGPT) Less than 7 U/L (8-55); AST (SGOT) 10 U/L (5-34); Albumin 3.4 g/dL (3.4-4.8); Alkaline Phosphatase 85 U/L (40-110); Anion Gap 31 mmol/L (10-20); BUN (Urea Nitrogen) 64 mg/dL (9.8-20.1); Bilirubin, Total 0.4 mg/dL (0.2-1.2); Calc. Creatinine Clearance 0 mL/min (70-130); Calcium 8.5 mg/dL (7.8-10.44); Carbon Dioxide 13 mmol/L (23-31); Chloride 99 mmol/L (98-107); Globulin 3.2 g/dL (2.4-3.5); Glucose 118 mg/dL (80-115); Potassium 5.8 mmol/L (3.5-5.1); Protein, Total 6.6 g/dL (5.8-8.1); Sodium 137 mmol/L (136-145)
[2022-01-10] MEDS ORDERED: Cefepime 2 GM VIAL ONE (12:34)
[2022-01-10 12:35] LABS: Band 9 % (5-11); Lymphocytes 2 % (21-51); MDiff Complete? YES; Monocytes 3 % (0-10); Neutrophil 86 % (42-75); Nucleated RBC 1 % (0); Platelet Morphology Comment Appears Increased; RBC Morphology Normal
[2022-01-10 14:21] LABS: Analyzer IN Cardio ER; Base Excess -9.1 mEq/L (-2.0 to +3.0); Calcium, Ionized (venous) 1.02 mmol/L (1.16-1.32); Chloride (VBG) 99 mmol/L (98-106); Potassium (VBG) 5.89 mmol/L (3.70-5.30); Sodium 134.5 mmol/L (133-146); pH (venous) 7.38 (7.32-7.43)
[2022-01-10 14:26] LABS: Actual Bicarbonate (HCO3v) 14 mEq/L (22-28)
[2022-01-10 14:32] LABS: Bilirubin 1+ (Negative); Blood, Urine Negative (Negative); Clarity Clear (Clear); Glucose, Urine (Dipstick) Normal (Negative); Ketone, Urine Trace mg/dL (Negative); Leukocyte Negative Leu/uL (Negative); Nitrite Negative (Negative); Protein, Urine (Dipstick) 30 mg/dL (Neg-Trace); RBC/HPF 0-3 HPF (0-3); Specific Gravity, Urine 1.023 (1.002-1.036); Squamous Epithelial 0-3 HPF (0-3); Urobilinogen 3 mg/dL (Less than 2); WBC/HPF 0-3 HPF (0-3)
[2022-01-10 14:44] LABS: Bacteria/HPF Rare-Few HPF (None Seen)
[2022-01-10] MEDS ORDERED: Vancomycin 1.5 GRAM/300 ML BAG 1.5 GM in Premix Bag 1 BAG IVPB SCH (15:00)
[2022-01-10 15:31] LABS: SARS-CoV-2 NAA Rapid Test Not Detected (NotDetected)
[2022-01-10] MEDS ORDERED: Pantoprazole 40 MG VIAL ONE (17:19)
[2022-01-10] MEDS ORDERED: Ondansetron PF 4 MG/2 ML Vial IVP PRN (18:56)
[2022-01-10] MEDS ORDERED: Calcium Carbonate 500 MG ChewTAB PO PRN (18:56)
[2022-01-10] MEDS ORDERED: Bisacodyl 5 MG TAB PO PRN (18:56)
[2022-01-10 20:50] VITALS: BMI 27.3
[2022-01-10] MEDS: Sodium Chloride 0.9% 1,000 ML IV SCH (21:25)
[2022-01-10] MEDS: Heparin 5,000 UNITS/ML VIAL SC SCH (21:30)
[2022-01-10] MEDS: Nystatin 500,000 UNITS/5 ML UDCUP SSW SCH (21:34)
[2022-01-10] MEDS: Acyclovir 400 mg Tablet PO SCH (21:34)
[2022-01-10] MEDS: CARBIDOPA PO SCH (21:52)
[2022-01-10] MEDS: LEVODOPA PO SCH (21:52)
[2022-01-11] MEDS: Cefepime 1 GM in Sodium Chloride 0.9% 100 ML IVPB SCH ×2 (02:12→16:08)
[2022-01-11 05:05] LABS: #Eosinphils 0.1 thou/uL (0.0-0.7); #Lymphocytes 0.5 thou/uL (1.20-3.40); #Monocytes 1.2 thou/uL (0.11-0.59); #Neutrophils 15.1 thou/uL (1.40-6.50); %Eosinophils 0.3 % (0.0-10.0); %Lymphocytes 2.7 % (21.0-51.0); %Monocytes 7.1 % (0.0-10.0); %Neutrophils 89.8 % (42.0-75.0); Hemoglobin 12.3 g/dL (12.0-16.0); Mean Corpuscular HGB CONC 33.1 g/dL (32.0-36.0); Mean Corpuscular Hemoglobin 31.6 pg (27.0-31.0); Mean Corpuscular Volume 95.5 fL (78.0-98.0); Mean Platelet Volume 6.6 fL (7.4-10.4); Platelet Count 446 thou/uL (130-400); RBC Distribution Width 12.6 % (11.5-14.5); White Blood Cell (WBC) Count 16.8 thou/uL (4.8-10.8)
[2022-01-11 05:14] LABS: ALT (SGPT) Less than 7 U/L (8-55); AST (SGOT) 7 U/L (5-34); Albumin 2.9 g/dL (3.4-4.8); Alkaline Phosphatase 71 U/L (40-110); Anion Gap 23 mmol/L (10-20); BUN (Urea Nitrogen) 61 mg/dL (9.8-20.1); Bilirubin, Total 0.4 mg/dL (0.2-1.2); Calc. Creatinine Clearance 40 mL/min (70-130); Calcium 8.6 mg/dL (7.8-10.44); Carbon Dioxide 16 mmol/L (23-31); Chloride 105 mmol/L (98-107); Globulin 3.3 g/dL (2.4-3.5); Glucose 108 mg/dL (80-115); Potassium 4.7 mmol/L (3.5-5.1); Protein, Total 6.2 g/dL (5.8-8.1); Sodium 139 mmol/L (136-145)
[2022-01-11] MEDS ORDERED: Levothyroxine Sodium 100 MCG TAB PO SCH (06:00)
[2022-01-11] MEDS: Sodium Chloride 0.9% 1,000 ML IV SCH (06:11)
[2022-01-11] MEDS: LEVODOPA PO SCH ×2 (06:13→09:39)
[2022-01-11] MEDS: CARBIDOPA PO SCH ×2 (06:13→09:39)
[2022-01-11] MEDS ORDERED: Cepastat Lozenges 1 LOZ PO PRN (07:46)
[2022-01-11] MEDS ORDERED: Senokot S 8.6-50 MG TAB PO PRN (07:46)
[2022-01-11] MEDS ORDERED: GUAIFENESIN SF SOLN 200 MG/10 ML UDCUP PO PRN (07:46)
[2022-01-11] MEDS ORDERED: Sodium Chloride 0.65% Nasal 44 ML BOT EA NARE PRN (07:46)
[2022-01-11] MEDS ORDERED: hydrALAZINE 20 MG/ML VIAL SLOW IVP PRN (07:46)
[2022-01-11] MEDS ORDERED: Moisturizing Cream (Eucerin) 113 GM JAR TOP PRN (07:46)
[2022-01-11] MEDS ORDERED: Loperamide HCl 2 MG CAP PO PRN (07:46)
[2022-01-11] MEDS ORDERED: Artificial Tear Sol 15 ML BOT EA EYE PRN (07:46)
[2022-01-11] MEDS: Heparin 5,000 UNITS/ML VIAL SC SCH ×2 (08:12→16:09)
[2022-01-11] MEDS: Nystatin 500,000 UNITS/5 ML UDCUP SSW SCH ×2 (08:12→15:37)
[2022-01-11] MEDS ORDERED: Dextrose 5% in Water 1,000 ML IV SCH (08:15)
[2022-01-11] MEDS ORDERED: Sodium Bicarbonate 150 MEQ in Dextrose 5% in Water 1,000 ML IV SCH (09:00)
[2022-01-11] MEDS ORDERED: PARoxetine 20 MG TAB PO SCH (09:00)
[2022-01-11] MEDS: Acyclovir 400 mg Tablet PO SCH ×2 (09:39→16:09)
[2022-01-11] MEDS: Albumin 25% 25 GM/100 ML BOT IVPB SCH ×2 (09:39→16:09)
[2022-01-11 14:16] LABS: Vancomycin, Random 13.2 ug/mL (See Comment)
[2022-01-11] MEDS ORDERED: VANCOMYCIN 1.75 GM/500 ML BAG 1.75 GM in Premix Bag 1 BAG IVPB SCH (15:30)
[2022-01-11 16:10] VITALS: BP 127/62; TEMP 98
[2022-01-11] MEDS ORDERED: Vancomycin 1 GM in Premix Bag 1 BAG IVPB SCH (17:00)
== END 2022-01-11 16:13 | disposition hospice, inpatient (51) | DRG 871 ==
LOC: ERS 11:25 → ERHOLD 15:18 → 2NO 20:08
PROVIDERS: ADMIT Student in an Organized Health Care Education/Training Program; ATTEND Internal Medicine
PROC: 3E03329 Introduction of Other Anti-infective into Peripheral Vein, Percutaneous Approach (ICD-10-PCS; principal; 2022-01-10)
PROC: 0W9G3ZZ Drainage of Peritoneal Cavity, Percutaneous Approach (ICD-10-PCS; 2022-01-10)
DX: A41.9 Sepsis, unspecified organism (principal); J18.9 Pneumonia, unspecified organism; G93.41 Metabolic encephalopathy; N17.9 Acute kidney failure, unspecified; R64 Cachexia; R18.0 Malignant ascites; C78.6 Secondary malignant neoplasm of retroperitoneum and peritoneum; E87.2 Acidosis; C80.1 Malignant (primary) neoplasm, unspecified; Z66 Do not resuscitate; Z51.5 Encounter for palliative care; R65.20 Severe sepsis without septic shock; E89.0 Postprocedural hypothyroidism; G20 Parkinson's disease; F02.80 Dementia in other diseases classified elsewhere, unspecified severity, without behavioral disturbance, psychotic disturbance, mood disturbance, and anxiety; F17.210 Nicotine dependence, cigarettes, uncomplicated; N18.30 Chronic kidney disease, stage 3 unspecified; E87.5 Hyperkalemia; Z20.822 Contact with and (suspected) exposure to COVID-19; Z79.899 Other long term (current) drug therapy; Z90.49 Acquired absence of other specified parts of digestive tract; Z90.710 Acquired absence of both cervix and uterus; Z88.2 Allergy status to sulfonamides; Z98.890 Other specified postprocedural states; Z68.27 Body mass index [BMI] 27.0-27.9, adult
CPT/HCPCS: 36415; 49083; 51701; 70450; 71045; 74176; 80053; 80202; 81003; 81015; 82140; 82805; 83605; 83880; 84484; 85025; 87040; 87086; 93005; 94760; 96361; 96365; 96367; 96375; C9113; J0692; J1644; J3370; J3490; J7050; J7070; P9047; U0002

== ENCOUNTER 2022-01-11 17:24 | Inpatient (IN) | payer OTHER ==
[2022-01-11] MEDS ORDERED: Acetaminophen 650 MG Suppository PR PRN (19:00)
[2022-01-11] MEDS ORDERED: Haloperidol Lactate 5 MG/ML VIAL SLOW IVP PRN (19:00)
[2022-01-11] MEDS ORDERED: Scopolamine 1.5 mg/72 hour Patch TOP PRN (19:00)
[2022-01-11] MEDS ORDERED: Promethazine HCl 25 MG SUPP PR PRN (19:00)
[2022-01-11] MEDS ORDERED: diphenhydrAMINE 50 MG/ML VIAL IVP PRN (19:00)
[2022-01-11] MEDS ORDERED: Morphine 10 MG/0.5 ML ORAL SYRINGE SL PRN (19:00)
[2022-01-11] MEDS ORDERED: Hyoscyamine Sulfate SL 0.125 mg Tablet SL PRN (19:00)
[2022-01-11] MEDS ORDERED: Ondansetron PF 4 MG/2 ML Vial IVP PRN (19:00)
[2022-01-11] MEDS: Morphine 2 MG/ML VIAL SLOW IVP PRN ×2 (19:27→23:22)
[2022-01-11 20:03] VITALS: BMI 26.4
[2022-01-12] MEDS: Morphine 2 MG/ML VIAL SLOW IVP PRN ×5 (05:21→23:23)
[2022-01-12 20:43] VITALS: BP 136/69; TEMP 96.8
[2022-01-12] MEDS: Lorazepam 2 MG/ML VIAL SLOW IVP PRN (22:10)
[2022-01-13] MEDS: Morphine 2 MG/ML VIAL SLOW IVP PRN ×2 (01:36→03:36)
[2022-01-13] MEDS: Lorazepam 2 MG/ML VIAL SLOW IVP PRN (03:39)
== END 2022-01-13 05:45 | disposition expired | DRG 951 ==
LOC: 2NO 17:24 → MSONC 01-12 15:09
PROVIDERS: ADMIT Family Medicine; ATTEND Student in an Organized Health Care Education/Training Program
DX: Z51.5 Encounter for palliative care (principal); Z66 Do not resuscitate; A41.9 Sepsis, unspecified organism; J18.9 Pneumonia, unspecified organism; C78.6 Secondary malignant neoplasm of retroperitoneum and peritoneum; G93.49 Other encephalopathy; E89.0 Postprocedural hypothyroidism; G20 Parkinson's disease; F02.80 Dementia in other diseases classified elsewhere, unspecified severity, without behavioral disturbance, psychotic disturbance, mood disturbance, and anxiety; K58.9 Irritable bowel syndrome, unspecified; F17.210 Nicotine dependence, cigarettes, uncomplicated; Z87.01 Personal history of pneumonia (recurrent); Z88.2 Allergy status to sulfonamides; Z79.899 Other long term (current) drug therapy; Z90.49 Acquired absence of other specified parts of digestive tract; Z90.710 Acquired absence of both cervix and uterus; Z98.84 Bariatric surgery status; Z82.49 Family history of ischemic heart disease and other diseases of the circulatory system
CPT/HCPCS: J2060; J2270